=== PATIENT | male | born 1985 | race Two or more races ===

== ENCOUNTER 2025-07-22 10:29 | Emergency (ER) | payer MEDICAID, SELFPAY ==
[2025-07-22 10:38] VITALS: BP 157/90; PULSE 94; RESP 19; TEMP 36.9; O2SAT 97; BMI 34.0
--- NOTE | 2025-07-22 10:44 | XR_ITS ---
EXAMINATION: PA lateral chest 2 views TECHNIQUE: Upright PA lateral chest 2 views Date and time: July 22, 2025, 1050 hours INDICATIONS: Difficulty breathing today. FINDINGS: Normal heart size. Lungs are clear. The osseous structures are intact IMPRESSION: No active disease
--- NOTE | 2025-07-22 10:44 | EKG_ITS ---
[facility] Test Date: 2025-07-22 Pat Name: KATINA MEJÍA Department: Room: - Gender: Male Administrative Tech: : [id number] Requested By: Darnell Mckeon Order Number: [id number] Reading MD: Darnell Mckeon Measurements Intervals [place] Rate: 89 P: 62 NV: 148 QRS: 25 QRSD: 109 T: 57 QT: 309 QTc: 376 Interpretive Statements SINUS RHYTHM NONSPECIFIC T-WAVE ABNORMALITY No previous ECG available for comparison /[id number]/[email or web address]/[id number]
--- NOTE | 2025-07-22 10:44 | PD.EDRME ---
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 A comprehensive ED assessment and evaluation of the patient, analysis of all test results, and completion of the medical decision making process will be conducted by additional ED providers. Chief Complaint: General Adult/Misc Complain Vital signs: Vital Signs Temperature 98.5 F 07/22/25 10:38 Pulse Rate 94 07/22/25 10:38 Respiratory Rate 19 07/22/25 10:38 Blood Pressure 157/90 H 07/22/25 10:38 Pulse Oximetry (%) 97 07/22/25 10:38 Oxygen Delivery Method Room Air 07/22/25 10:38 Vital signs reviewed by provider: Yes
[2025-07-22 11:41] LABS: Collection Type, Urine Clean Catch; Squamous Epithelial Cell,Urine 0 /hpf (0-5)
[2025-07-22 11:59] LABS: Amphetamine/Methamp Scrn,U Negative (Negative); Barbiturate Screen,Urine Negative (Negative); Benzodiazepines Screen,Urine Negative (Negative); Benzoylecgonine Screen, Ur Negative (Negative); Fentanyl Screen,Urine Negative (Negative); Opiate Screen,Urine Negative (Negative); THC Screen,Urine Negative (Negative)
[2025-07-22 12:07] LABS: Bacteria,Urine Rare; Bilirubin,Urine Negative (Negative); Blood,Urine Negative (Negative); Clarity,Urine Clear (Clear/Hazy); Color,Urine Yellow (Lt Yel-Yel); Culture Indicated,Urine Not Indicated; Glucose, Urine 4+ (Negative); Ketones,Urine Negative (Negative); Leukocyte Esterase,Urine Negative (Negative); Nitrite,Urine Negative (Negative); PH,Urine 6.0 (5.0-7.0); Protein,Urine Trace (Neg - Trace); RBC,Urine 4 /hpf (0-3); Specific Gravity,Urine 1.040 (1.001-1.035); Urobilinogen,Urine Negative mg/dL (0.0-1.0); WBC,Urine 1 /hpf (0-5)
[2025-07-22 12:07] LABS: Basophils # (Auto) 0.0 Thou/mm3 (0.0-0.2); Basophils % (Auto) 0 % (0-2.5); Eosinophils # (Auto) 0.0 Thou/mm3 (0.0-0.5); Eosinophils % (Auto) 0 % (0-10); Hematocrit 42.3 % (41.0-53.0); Hemoglobin 14.6 g/dL (13.5-16.0); Immature Granulocytes Auto 0.02 Thou/mm3 (0.00-0.00); Lymphocytes # (Auto) 1.6 Thou/mm3 (1.0-4.8); Lymphocytes % (Auto) 19 % (10-50); Mean Corpuscular HGB Conc 34.5 g/dl (31.0-37.0); Mean Corpuscular Hemoglobin 30.1 pg (25.0-35.0); Mean Corpuscular Volume 87 fL (80-100); Monocytes # (Auto) 0.6 Thou/mm3 (0.0-0.8); Monocytes % (Auto) 7 % (0-12); Neutrophils # (Auto) 6.0 Thou/mm3 (1.8-7.7); Neutrophils % (Auto) 73 % (37-80); Nucleated Red Blood Cell # 0.00 Thou/mm3 (0.00-0.00); Nucleated Red Blood Cell % 0 /100 WBC (0); Platelet Count 100 Thou/mm3 (140-440); RDW Standard Deviation 44.8 fL (35.1-43.9); Red Blood Count 4.85 Miln/mm3 (4.50-5.90); White Blood Count 8.3 Thou/mm3 (3.8-10.6)
[2025-07-22 12:19] LABS: INR 1.1 (0.9-1.3); Partial Thromboplastin Time 27.1 Seconds (22.0-36.0); Prothrombin Time 11.7 Seconds (9.0-12.2)
[2025-07-22 12:20] LABS: B-Type Natriuretic Peptide < 20 pg/mL (0-100)
[2025-07-22 12:24] LABS: Alanine Aminotransferase 36 U/L (10-49); Albumin, Serum 4.1 gm/dL (3.5-5.0); Albumin/Globulin Ratio 1.3 (1.2-2.2); Alkaline Phosphatase 108 U/L (46-116); Anion Gap 7 (7-16); Aspartate Amino Transferase 35 U/L (0-34); BUN/Creatinine Ratio 10 Ratio (12-20); Bilirubin,Total 0.9 mg/dL (0.3-1.2); Blood Urea Nitrogen 7 mg/dL (9-23); Calcium 9.7 mg/dL (8.3-10.6); Calcium (Corrected) 9.7 mg/dL (8.5-10.1); Carbon Dioxide 28.6 mMol/L (20.0-31.0); Chloride 99 mMol/L (98-107); Creatinine (Component) 0.7 mg/dL (0.6-1.3); Estimated Creatinine Clearance 184.6 mL/min (>60); Globulin 3.1 gm/dL (2.3-3.5); Glucose 306 mg/dL (74-106); Magnesium 1.6 mg/dL (1.6-2.6); Osmolality,Calculated 280 (275-295); Potassium 4.3 mMol/L (3.4-5.1); Sodium 135 mMol/L (136-145); Total Protein 7.2 gm/dL (5.7-8.2); Troponin I < 0.020 ng/mL (0.0-0.045); eGFR > 60 See Note
--- NOTE | 2025-07-22 12:40 | EDNOTE_ITS ---
<Statement entered by Adrianna Brown MD - 07/22/25 16:00> As co-signing physician, I was present and available for consult prn. I concur with the plan and care as documented by the midlevel provider. ED General RME/HPI General Chief complaint: General Adult/Misc Complain Stated complaint: DIZZY, C/P, SOB SINCE YESTERDAY 1600 Time Seen by Provider: 07/22/25 11:48 Arrival date/time: 07/22/25 10:29 CC: Chest pressure chest pain HPI onset yesterday and chest pressure through most of the night patient states now its mostly gone is spontaneously resolved over this morning. The patient did take his methadone this morning. There have been no changes in the methadone dosage in the last 2 years. 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 A comprehensive ED assessment and evaluation of the patient, analysis of all test results, and completion of the medical decision making process will be conducted by additional ED providers. Related Data Home Medications ?Medication ?Instructions ?Recorded ?Confirmed lisinopril 20 mg tablet 20 mg PO QDAY 01/04/2101/04 methadone 10 mg/mL oral concentrate 75 mg PO QDAY 12/1501/04/21 sitagliptin phosphate 50 1 tab PO BID 01/04/21 mg-metformin 1,000 mg tablet (Janumet) Allergies Allergy/AdvReac Type Severity Reaction Status Date / Time No Known Allergies Allergy Verified 01/04/21 19:19 Review of Systems Review of Systems Narrative Review of Systems: GEN: No fever, no chills, no weight loss EYES: No discharge, no visual changes, no pain HEENT: No ear pain, no congestion, no sore throat PULM: No shortness of breath, no cough, no congestion CV: + chest pain, no dyspnea on exertion, no palpitations GI: No nausea, no vomiting, no diarrhea, no pain, no constipation : No frequency, no urgency, no dysuria MUSC/SKEL: No joint pain, no back pain SKIN: No rash PSYCH: No hallucinations, no depression HEME/LYMPH: No easy bleeding or bruising tendencies NEURO: No weakness, no headache Past Medical History Past Medical History CARDIAC: Positive Hypertension; Negative Congestive Heart Failure RESPIRATORY: Negative Chronic Obstructive Pulmonary Disease (COPD) GENITOURINARY: Negative Renal Disease ENDOCRINE: Positive Diabetes Mellitus Type 2; Negative Diabetes Mellitus Type 1 PSYCHO/SOCIAL: Positive Recreational Drug Use Social History SMOKING STATUS: Never smoker SUBSTANCE USE: opiates ED Exam Narrative Physical exam: [General: Not in any acute distress Head normocephalic HEENT: Within acceptable limits Neck is supple nontender Chest equal chest rise nontender to palpation Respiratory: Clear to auscultation no wheezes crackles or rubs CV: Rate rhythm is regular no murmurs rubs or clicks Abdomen is soft nontender no masses positive bowel sounds all 4 quadrants Back: No CVA tenderness no spinous process tenderness from cervical spine thoracic and lumbar spine Skin: Intact no petechiae rash induration ulceration or crepitus Extremities: Moving all extremity against resistance cap refill less than 2 seconds neurosensory intact Neuro: Awake alert oriented x3 Glascow coma 15 no focal deficits] Course Quality Measures none Orders Category Date Time Status EKG (ED ONLY) *Do not use* NOW Care 07/22/25 10:44 Completed EKG (ED Only) Stat Exams 07/22/25 10:44 Draft XR chest 2V Stat Exams 07/22/25 10:44 Completed B-Type Natriuretic Peptide Stat Lab 07/22/25 11:48 Completed CBC Stat Lab 07/22/25 11:48 Completed Comprehensive Metabolic Panel Stat Lab 07/22/25 11:48 Completed Drug Screen,Urine Stat Lab 07/22/25 11:30 Completed Magnesium Stat Lab 07/22/25 11:48 Completed Partial Thromboplastin Time Stat Lab 07/22/25 11:48 Completed Prothrombin Time with INR Stat Lab 07/22/25 11:48 Completed Troponin I Stat Lab 07/22/25 11:48 Completed Urinalysis, C/S if Indicated Stat Lab 07/22/25 11:30 Completed Vital Signs Vital signs: Vital Signs Temperature 98.5 F 07/22/25 10:38 Pulse Rate 94 07/22/25 10:38 Respiratory Rate 19 07/22/25 10:38 Blood Pressure 157/90 H 07/22/25 10:38 Pulse Oximetry (%) 97 07/22/25 10:38 Oxygen Delivery Method Room Air 07/22/25 10:38 Discharge Plan Plan Patient Disposition: HOME (Self Care) Patient condition on transfer: Stable Prescriptions/Referrals Prescriptions/Med Rec: No Action lisinopril 20 mg Tablet 20 mg PO QDAY methadone 10 mg/mL Concentrate 75 mg PO QDAY Janumet 50-1,000 mg Tablet 1 tab PO BID Referrals: Denny Mendez PA-C [Primary Care Provider] - In 1 week Problem List Clinical Impression: Chest pain Patient/Caregiver Discharge Instructions Education Materials: ED Chest Pain, Uncertain Cause Print Language: Belizean Stand Alone Forms: [employer] Award Info., Patient Portal Info Letter PA/MAKEDA Supervising Physician PA/MAKEDA Supervising Physician: Jaiden Ortiz ENP MDM Clinical Information Provided by: patient Medical Records reviewed [facility] Meds/Rx considered, not ordered None Labs/Rad/Tests considered, not ordered None Chronic Illness/Social Conditions Explain: On methadone EKG Interpretation EKG #1: EKG Interpretation: EKG performed at 1112 shows a ventricular rate of 89 CA interval 148 QRS of 109 QTc of 355 this is sinus rhythm nonspecific ST segment changes. Imaging Imaging interpretation: interpreted by me Imaging Interpretation(s): CBC shows no acute leukocytosis anemia thrombocytopenia Coags within acceptable limits CMP shows sodium 135 no other significant electrolyte imbalances other than glucose of 308. No transaminitis or T. bili elevation. Troponin is negative BNP is within acceptable limits Urine is spec gravity 1040 rare bacteria leukocyte esterase negative. U tox is negative. Chest x-ray as interpreted by me and read by radiology is unremarkable Diagnosis Differential Diagnosis ED Complaint MDM: ACS LA pneumonia
== END 2025-07-22 13:17 | disposition home or self-care (01) ==
PROVIDERS: Nurse Practitioner Family; Emergency Provider Emergency Medicine; PCP Physician Assistant
DX: R07.89 Other chest pain (principal); R94.31 Abnormal electrocardiogram [ECG] [EKG]; I10 Essential (primary) hypertension
CPT/HCPCS: 36415; 71046; 80053; 80307; 81001; 83735; 83880; 84484; 85025; 85610; 85730; 93005; 99283